=== PATIENT | male | born 1970 | race African-American/Black ===

== ENCOUNTER 2019-10-02 22:41 | Emergency (ER) | payer OTHER ==
--- NOTE | 2019-10-03 01:04 | ED ---
General Adult HPI - General Chief complaint: Psychiatric Symptoms Stated complaint: Mental Health Time Seen by Provider: 10/02/19 22:55 Source: patient, police, RN notes reviewed, old records reviewed Mode of arrival: ambulatory Limitations: no limitations - History of Present Illness Initial comments: 49-year-old male patient presents to ED for psychiatric evaluation. Reports he has been having stresses with his . Reports that she was yelling at him and made him very upset. He stated that he made a, along the lines that I would rather be and be treated like this. She then called police reportedly and had him come get evaluated. Patient denying any suicidal or homicidal ideations. Reports that he was just upset at the time. Denies any prior psychiatric history.denies any physical complaints. - Related Data Allergies Allergy/AdvReac Type Severity Reaction Status Date / Time No Known Allergies Allergy Verified 10/02/19 22:52 Review of Systems ROS Statement: Those systems with pertinent positive or pertinent negative responses have been documented in the HPI. ROS Other: All systems not noted in ROS Statement are negative. Past Medical History Past Medical History: No Reported History History of Any Multi-Drug Resistant Organisms: None Reported Past Surgical History: Bariatric Surgery Past Psychological History: No Psychological Hx Reported Smoking Status: Current every day smoker Past Alcohol Use History: Heavy Past Drug Use History: None Reported General Exam - General Exam Comments Initial Comments: Constitutional: NAD, AOX3, Pt has pleasant affect. HEENT: NC/AT, trachea midline, neck supple, no lymphadenopathy. External ears appear normal, without discharge. Mucous membranes moist. EOM intact. There is no scleral icterus. No pallor noted. Cardiopulmonary: RRR, no murmurs, rubs or gallops, no JVD noted. Lungs CTAB in anterior and posterior maldonado. No peripheral edema. Abdominal exam: Abdomen soft and non-distended. Abdomen non-tender to palpation in all 4 quadrants. Bowel sounds active in LLQ. No hepatosplenomegaly. No ecchymosis Neuro: CN II-XII grossly intact. MSK: Full active ROM in upper and lower extremities, Limitations: no limitations Course Vital Signs 10/02/19 10/03/19 22:43 03:02 Temperature 99.1 F 98.9 F Pulse Rate 101 H 80 Respiratory 20 18 Rate Blood Pressure 204/97 180/89 O2 Sat by Pulse 99 98 Oximetry Medical Decision Making - Medical Decision Making 41-year-old male patient was ED for evaluation of the patient. Patient poorly made a suicidal statement all fighting with his . Denies any physical complaints. Patient was evaluated in the psychiatric services Recommended discharge. Due to plan filled out. Patient felt fine displayed mild hypertension. Patient not havin gany symptoms will have recheck by primary care provider. Case discussed with Dr. Pedroza. Disposition Clinical Impression: Psychiatric complaint, Elevated blood pressure reading Disposition: HOME SELF-CARE Condition: Stable Instructions (If sedation given, give patient instructions): Depression (ED) Additional Instructions: Follow-up with primary care provider and mental health resources tomorrow. Have blood pressure rechecked by primary care provider, return to ER if condition worsens. Is patient prescribed a controlled substance at d/c from ED?: No Referrals: None,Stated [Primary Care Provider] - 1-2 days King Simpson [STAFF PHYSICIAN] - 1-2 days
[2019-10-03 03:03] VITALS: BP 180/89; PULSE 80; RESP 18; TEMP 98.9
== END 2019-10-03 03:37 | disposition home or self-care (01) ==
LOC: EC 22:41
DX: F69 Unspecified disorder of adult personality and behavior (principal); R03.0 Elevated blood-pressure reading, without diagnosis of hypertension; F17.200 Nicotine dependence, unspecified, uncomplicated; Z98.84 Bariatric surgery status
CPT/HCPCS: 82075; 99284